=== PATIENT | male | born 1950 | race Caucasian/White ===

== ENCOUNTER 2017-04-03 22:55 | Day surgery (SDC) | payer OTHER ==
[~2017-04-03] VITALS: Ht 180.3 cm; Wt 89.3 kg
[2017-04-03 23:30] VITALS: BP 120/88; PULSE 94; TEMP 98.8; O2SAT 97
[2017-04-03] MEDS ORDERED: GLIP5TAB8 PO (23:57)
[2017-04-03] MEDS ORDERED: METF1000 PO (23:57)
[2017-04-03] MEDS ORDERED: SIMV20TA PO (23:58)
[2017-04-04 00:20] VITALS: BP 154/93; PULSE 95; RESP 18; O2SAT 97
[2017-04-04] MEDS ORDERED: ONDANSETRON HCL 4 MG/2 ML VIAL IV ONE (00:30)
[2017-04-04] MEDS ORDERED: SODIUM CHLOR 0.9% 1000 ML INJ 1,000 ML IV SCH ×2 (00:30→02:00)
[2017-04-04 01:03] LABS: AUTOMATED NEUTROPHIL # 7.4 TH/MM3 (1.8-7.7); BASOPHIL # 0.1 TH/MM3 (0-0.2); BASOPHIL % 0.9 % (0.0-2.0); CHLORIDE 104 MEQ/L (98-107); EOSINOPHIL # 0.2 TH/MM3 (0-0.4); EOSINOPHIL % 1.5 % (0.0-4.0); HEMATOCRIT 45.8 % (39.0-51.0); HEMO FLAGS DIFF FINAL; LYMPH % 18.4 % (9.0-44.0); LYMPHOCYTE # 1.9 TH/MM3 (1.0-4.8); MEAN CELL VOLUME 86.8 FL (80.0-100.0); MEAN CORPUSCULAR HEMOGLOBIN 29.4 PG (27.0-34.0); MEAN CORPUSCULAR HGB CONC 33.9 % (32.0-36.0); MONO % 7.9 % (0.0-8.0); NEUT % 71.3 % (16.0-70.0); PLATELET COUNT 276 TH/MM3 (150-450); POTASSIUM 3.9 MEQ/L (3.5-5.1); RED BLOOD COUNT 5.28 MIL/MM3 (4.50-5.90); RED CELL DISTRIBUTION WIDTH 12.6 % (11.6-17.2); SODIUM (NA) 141 MEQ/L (136-145); WHITE BLOOD COUNT 10.4 TH/MM3 (4.0-11.0)
[2017-04-04 01:06] LABS: ANION GAP 11 MEQ/L (5-15); BICARBONATE 25.9 MEQ/L (21.0-32.0); BLOOD UREA NITROGEN 22 MG/DL (7-18)
[2017-04-04 01:09] LABS: ALT (GPT) 30 U/L (12-78); AST (GOT) 27 U/L (15-37); GLOMERULAR FILTRATION RATE 83 ML/MIN (>89)
[2017-04-04 01:11] LABS: TOTAL BILIRUBIN ADULT 1.1 MG/DL (0.2-1.0)
[2017-04-04 01:12] LABS: ALKALINE PHOSPHATASE 92 U/L (45-117)
--- NOTE | 2017-04-04 01:12 | RADHPO ---
EXAM DATE/TIME: 04/04/2017 00:55 [place] COMPARISON: No previous studies available for comparison. INDICATIONS : Short of breath. MEDICAL HISTORY : None. SURGICAL HISTORY : None. ENCOUNTER: Initial ACUITY: 2 days PAIN SCORE: 6/10 LOCATION: Bilateral chest FINDINGS: A single view of the chest demonstrates the lungs to be symmetrically aerated without evidence of mas s, infiltrate or effusion. The cardiomediastinal contours are unremarkable. Osseous structures are intact. CONCLUSION: Normal examination. Ramon Elaine Jr., MD on April 04, 2017 at 1:11 Board Certified Radiologist. This report was verified electronically.
[2017-04-04 01:20] VITALS: BP 153/84; PULSE 89; RESP 18; O2SAT 99
--- NOTE | 2017-04-04 01:59 | PD ---
HPI Chief Complaint: GI Complaint Time Seen by Provider: 00:09 Travel History International Travel<30 days: No Contact w/Intl Traveler<30days: No Traveled to known affect area: No History of Present Illness HPI This a 66 old male presents emergency department complaining that he is having pain in his esophagus. He states this started yesterday. It a history of severe acid reflux in the past but hasn't really had trouble recently. He states he was eating when he got this pain and fullness in his chest. He states he tries to eat and swallow but we'll go more than midway down his chest. He is not been able to really eat or drink since yesterday evening. He still intermittently wretches. He states he's had very mild similar problems in the past but always resolved pretty quickly on its own. No trouble breathing. No change in his bowel movements. His urine is been a little bit darker. History Past Medical History Narrative Medical Diabetes GERD Tetanus Vaccination: < 5 Years Influenza Vaccination: Yes Social History Alcohol Use: No Tobacco Use: No Allergies-Medications (Allergen,Severity, Reaction): Coded Allergies: No Known Allergies (Unverified , 04/03/17) Reported Meds & Prescriptions Reported Meds & Active Scripts Active Reported Simvastatin 20 Mg Tab 20 Mg PO DAILY Glipizide 5 Mg Tab 5 Mg PO BIDAC Take 30 minutes before a meal Metformin (Metformin HCl) 1,000 Mg Tab 1,000 Mg PO BIDPC With meals Review of Systems Except as stated in HPI: all other systems reviewed are Neg Physical Exam Narrative GENERAL: 66 old man, intermittently retching into an emesis basin. SKIN: Focused skin assessment warm/dry. NECK: Trachea midline. No JVD. CARDIOVASCULAR: Regular rate and rhythm. No murmur appreciated. RESPIRATORY: No accessory muscle use. Clear to auscultation. Breath sounds equal bilaterally. GASTROINTESTINAL: Abdomen soft, non-tender, nondistended. Hepatic and splenic margins not palpable. MUSCULOSKELETAL: No obvious deformities. No clubbing. No cyanosis. No edema. NEUROLOGICAL: Awake and alert. No obvious cranial nerve deficits. Motor grossly within normal limits. Normal speech. PSYCHIATRIC: Appropriate mood and affect; insight and judgment normal. Data Data Last Documented VS Vital Signs Date Time Temp Pulse Resp B/P Pulse Ox O2 Delivery O2 Flow Rate FiO2 04/04/17 01:20 89 18 153/84 99 Room Air 04/03/17 23:30 98.8 Orders Complete Blood Count With Diff (04/04/17 00:21) Comprehensive Metabolic Panel (04/04/17 00:21) Chest, Single Ap (04/04/17 ) Iv Access Insert/Monitor (04/04/17 00:21) Sodium Chlor 0.9% 1000 Ml Inj (Ns 1000 M (04/04/17 00:30) Ondansetron Inj (Zofran Inj) (04/04/17 00:30) Consult Gastroenterology (04/04/17 ) Labs Laboratory Tests Test 04/04/17 00:40 White Blood Count 10.4 TH/MM3 Red Blood Count 5.28 MIL/MM3 Hemoglobin 15.5 GM/DL Hematocrit 45.8 % Mean Corpuscular Volume 86.8 FL Mean Corpuscular Hemoglobin 29.4 PG Mean Corpuscular Hemoglobin 33.9 % Concent Red Cell Distribution Width 12.6 % Platelet Count 276 TH/MM3 Mean Platelet Volume 8.0 FL Neutrophils (%) (Auto) 71.3 % Lymphocytes (%) (Auto) 18.4 % Monocytes (%) (Auto) 7.9 % Eosinophils (%) (Auto) 1.5 % Basophils (%) (Auto) 0.9 % Neutrophils # (Auto) 7.4 TH/MM3 Lymphocytes # (Auto) 1.9 TH/MM3 Monocytes # (Auto) 0.8 TH/MM3 Eosinophils # (Auto) 0.2 TH/MM3 Basophils # (Auto) 0.1 TH/MM3 CBC Comment DIFF FINAL Differential Comment Sodium Level 141 MEQ/L Potassium Level 3.9 MEQ/L Chloride Level 104 MEQ/L Carbon Dioxide Level 25.9 MEQ/L Anion Gap 11 MEQ/L Blood Urea Nitrogen 22 MG/DL Creatinine 0.92 MG/DL Estimat Glomerular Filtration 83 ML/MIN Rate Random Glucose 149 MG/DL Calcium Level 9.3 MG/DL Total Bilirubin 1.1 MG/DL Aspartate Amino Transf 27 U/L (AST/SGOT) Alanine Aminotransferase 30 U/L (ALT/SGPT) Alkaline Phosphatase 92 U/L Total Protein 8.2 GM/DL Albumin 4.3 GM/DL [facility] Medical Decision Making Medical Screen Exam Complete: Yes Emergency Medical Condition: Yes Interpretation(s) LABS: CBC is unremarkable. CMP is unremarkable, mildly elevated BUN to suggest dehydration. Chest x-ray is normal. Differential Diagnosis Esophageal obstruction, stricture, achalasia, dysmotility, other Narrative Course Medical decision making 66 old male with evidence of esophageal obstruction, ongoing since yesterday. Some intermittent retching and swelling is phlegm. He looks well despite this. I spoke with on the phone, recommends transfer to the main hospital for EGD in the morning. Spoke with Dr. Cali, in the ED, we'll transfer patient ER to ER. Diagnosis Primary Impression: Esophageal obstruction Navi Koenig MD April 04, 2017 01:59
[2017-04-04 02:31] VITALS: BP 155/97; PULSE 85; RESP 16; TEMP 98.7; O2SAT 99
[2017-04-04 05:55] VITALS: BP 123/58; PULSE 87; RESP 14; TEMP 98.6; O2SAT 99
[2017-04-04 07:48] VITALS: BP 142/75; PULSE 95; RESP 14; TEMP 99.2; O2SAT 98
[2017-04-04] MEDS ORDERED: PROPOFOL 200 MG/20 ML AMP IV ONE (07:58)
--- NOTE | 2017-04-04 08:30 | GIPROC ---
[facility] [address] [place], [id number] EGD WITH DILATION PROCEDURE REPORT EXAM DATE: 04/04/2017 PATIENT NAME: Uri Zazueta MR#: [id number] BIRTHDATE: 1950 ATTENDING: Hermelinda Terry MD ORDER #: [id number] DIETITIAN: Bruce Beasley Stienbarger, Terrie, and Matt Villalobos STATUS: outpatient INDICATIONS: The patient is a 66 yr old male here for an EGD with dilation due to dysphagia, foreign body esophagus PROCEDURE PERFORMED: EGD w/ biopsy EGD w/ dilation of esophagus via guidewire EGD w/ fb removal MEDICATIONS: Per Anesthesia and None. TOPICAL ANESTHETIC: none CONSENT: The patient understands the risks and benefits of the procedure and understands that these risks include, but are not limited to: sedation, allergic reaction, infection, perforation and/or bleeding. Alternative means of evaluation and treatment include, among others: physical exam, x-rays, and/or surgical intervention. The patient elects to proceed with this endoscopic procedure. medical equipment was checked for proper function. Hand hygiene and appropriate measures for infection prevention was taken. After the risks, benefits and alternatives of the procedure were thoroughly explained, Informed consent was verified, confirmed and timeout was successfully executed by the treatment team. The patient was anesthetized with topical anesthesia and the Pentax [id number] endoscope was introduced through the mouth and advanced to the second portion of the duodenum. The instrument was slowly withdrawn as the mucosa was fully examined. Multiple superficial ulcerations in duodenum second portion gastritis antrum-biopsy esophagitis distal esophagus/stricture s/p dilatation using Savary dilator 16 large piece of meat in distal esophagus s/p removal using snare and tripong. Dilation was performed at gastroesophageal junction. DILATOR: SIZE(S): RESISTANCE: HEME: APPEARANCE: Dilator: Savary over guidewire Size(s): 16 COMMENT: Retroflexed views revealed a hiatal hernia ADVERSE EVENTS: There were no complications. IMPRESSIONS: 1. Multiple superficial ulcerations in duodenum second portion gastritis antrum-biopsy esophagitis distal esophagus/stricture s/p dilatation using Savary dilator 16 large piece of meat in distal esophagus s/p removal using snare and tripong 2. Retroflexed views revealed a hiatal hernia RECOMMENDATIONS: 1. Await biopsy results. Biopsy results will not be ready for 7-10 days. If you don't hear from us in two weeks, call our office for biopsy results. 2. Anti-reflux regimen 3. Start PPI 4. Dilatations PRN 5. Avoid NSAIDS 6. Pantoprazole 40 mg po daily fu office egd/dil in 6-8 weeks chew food well REPEAT EXAM: EGD pending biopsy results Hermelinda Terry MD eSigned: Hermelinda Terry MD 04/04/2017 8:30 AM cc: PATIENT NAME: Uri Zazueta MR#: [id number]
[2017-04-04] MEDS ORDERED: DO NOT ADM ANY ANTICOAGULANT DRUGS PRN (08:32)
[2017-04-04] MEDS ORDERED: PANT40TA3 PO (08:35)
--- NOTE | 2017-04-04 08:59 | PD.CONS ---
HPI History of Present Illness This is a 66 year old male who came to the ER for dysphagia and odynophagia. He reports that he has had GERD in the past and at one point was on medication for this, but has not had issues with this in quite some time. He was doing okay up until yesterday, when he noticed that it was taking longer to swallow his food. He states that the food was going down, but taking "longer than usual " and that when it would hit his mid esophageal area, he would have a aching/ pressure type discomfort when he tried to swallow. He had this with both liquids and solids. He denies any nausea, vomiting, abdominal pain. He has never had this in the past and has never had an EGD. He takes a daily ASA, but no Aleve or Ibuprofen. He denies any hx of strictures. (Catarina Cristina) PFSH Past Medical History DM GERD Past Surgical History Pilonidal cyst excision (Catarina Cristina) Coded Allergies: No Known Allergies (Unverified , 04/03/17) Medications Allergies Coded Allergies Type Severity Reaction Last Updated Verified No Known Allergies 04/03/17 No Active Scripts Medications Dose Route/Sig Days Date Category Dose Instructions Simvastatin 20 Mg Tab 20 Mg PO DAILY 04/03/17 Reported Glipizide 5 Mg Tab 5 Mg PO BIDAC 04/03/17 Reported Take 30 minutes before a meal Metformin (Metformin HCl) 1,000 Mg Tab 1,000 Mg PO BIDPC 04/03/17 Reported With meals Family History Noncontributory Social History No tobacco, etoh, illicit drug use. (Catarina Cristina) Review of Systems Constitutional: DENIES: Fatigue, Weight loss, Change in appetite Respiratory: DENIES: Cough Cardiovascular: COMPLAINS OF: Chest pain Gastrointestinal: COMPLAINS OF: Difficulty Swallowing, Odynophagia, Heartburn, DENIES: Abdominal pain, Black stools, Nausea, Vomiting Integumentary: DENIES: Rash Hematologic/lymphatic: DENIES: Bruising Neurologic: DENIES: Headache Psychiatric: DENIES: Confusion (Catarina Cristina) GI Exam Vitals I&O Vital Signs Date Time Temp Pulse Resp B/P Pulse Ox O2 Delivery O2 Flow Rate FiO2 04/04/17 07:48 99.2 95 14 142/75 98 Room Air 04/04/17 05:55 98.6 87 14 123/58 99 Room Air 04/04/17 02:31 98.7 85 16 155/97 99 Room Air 04/04/17 01:20 89 18 153/84 99 Room Air 04/04/17 00:20 95 18 154/93 97 Room Air 04/03/17 23:30 98.8 94 120/88 97 I/O 04/03/17 04/03/17 04/03/17 04/04/17 04/04/17 04/04/17 07:00 15:00 23:00 07:00 15:00 23:00 Intake Total 1000 ml Balance 1000 ml Intake IV Total 1000 ml Imaging Last Impressions Chest X-Ray 04/04/17 0000 Signed Impressions: Service Date/Time: Tuesday, April 04, 2017 00:55 - CONCLUSION: Normal examination. Ramon Elaine Jr., MD Laboratory Test 04/04/17 00:40 White Blood Count 10.4 TH/MM3 Red Blood Count 5.28 MIL/MM3 Hemoglobin 15.5 GM/DL Hematocrit 45.8 % Mean Corpuscular Volume 86.8 FL Mean Corpuscular Hemoglobin 29.4 PG Mean Corpuscular Hemoglobin 33.9 % Concent Red Cell Distribution Width 12.6 % Platelet Count 276 TH/MM3 Mean Platelet Volume 8.0 FL Neutrophils (%) (Auto) 71.3 % Lymphocytes (%) (Auto) 18.4 % Monocytes (%) (Auto) 7.9 % Eosinophils (%) (Auto) 1.5 % Basophils (%) (Auto) 0.9 % Neutrophils # (Auto) 7.4 TH/MM3 Lymphocytes # (Auto) 1.9 TH/MM3 Monocytes # (Auto) 0.8 TH/MM3 Eosinophils # (Auto) 0.2 TH/MM3 Basophils # (Auto) 0.1 TH/MM3 CBC Comment DIFF FINAL Differential Comment Sodium Level 141 MEQ/L Potassium Level 3.9 MEQ/L Chloride Level 104 MEQ/L Carbon Dioxide Level 25.9 MEQ/L Anion Gap 11 MEQ/L Blood Urea Nitrogen 22 MG/DL Creatinine 0.92 MG/DL Estimat Glomerular Filtration 83 ML/MIN Rate Random Glucose 149 MG/DL Calcium Level 9.3 MG/DL Total Bilirubin 1.1 MG/DL Aspartate Amino Transf 27 U/L (AST/SGOT) Alanine Aminotransferase 30 U/L (ALT/SGPT) Alkaline Phosphatase 92 U/L Total Protein 8.2 GM/DL Albumin 4.3 GM/DL Physical Examination HEENT: Normocephalic; atraumatic; no jaundice. CHEST: CTA CARDIAC: RRR ABDOMEN: Soft, nondistended, nontender; no hepatosplenomegaly; bowel sounds are present in all four quadrants. EXTREMITIES: No clubbing, cyanosis, or edema. SKIN: Normal; no rash; no jaundice. PEDIATRIC PHYSIATRIST: No focal deficits; alert and oriented times three. (Catarina Cristina) Assessment and Plan Plan ASSESSMENT: - Dysphagia, Odynophagia. Sudden onset yesterday without one precipitating even. States that he noticed that food seem to get caught in the mid/lower esophageal area, food and liquids would go down, but it would take longer than usual and he would have a discomfort with this. No N/V. No hx of strictures. Plan for EGD today. PPI - GERD. PPI - DM. Per primary PLAN: - Plan for egd with foreign body removal - Obtain consents - NPO - PPI - Pt seen and examined by Dr. Terry and myself and this note is written on her behalf (Catarina Cristina) Physician Comments seen, examined agree with above (Hermelinda Terry MD) Catarina Cristina April 04, 2017 08:59 Hermelinda Terry MD April 05, 2017 06:27
[2017-04-04 09:45] VITALS: BP 142/81; PULSE 97; RESP 16; TEMP 98.2; O2SAT 96
[2017-04-04] MEDS ORDERED: ONDANSETRON HCL 4 MG/2 ML VIAL IV PUSH ONE (12:00)
[2017-04-04] MEDS ORDERED: ePHEDrine/NS 25 MG/5 ML SYR IV ONE (12:00)
--- NOTE | 2017-04-19 07:05 | PD ---
Data Data Orders Complete Blood Count With Diff (04/04/17 00:21) Comprehensive Metabolic Panel (04/04/17 00:21) Chest, Single Ap (04/04/17 ) Iv Access Insert/Monitor (04/04/17 00:21) Sodium Chlor 0.9% 1000 Ml Inj (Ns 1000 M (04/04/17 00:30) Ondansetron Inj (Zofran Inj) (04/04/17 00:30) Consult Gastroenterology (04/04/17 ) NPO (04/04/17 01:57) Sodium Chlor 0.9% 1000 Ml Inj (Ns 1000 M (04/04/17 02:00) (Hub Use Only)Inp Phy Cons/Ref (04/04/17 ) Admit Order (Ed Use Only) (04/04/17 06:58) MDM Supervised Visit with MARCUS: No Narrative Course Pt. was received from [place]. He had no signs of airway compromise and was stable in the ED. He was transported to same day care for endoscopy. Diagnosis Primary Impression: Esophageal obstruction Patient Instructions: Pantoprazole (By mouth), Soft Diet (DC), Esophageal Foreign Body (GEN), Esophageal Dilation (DC), General Anesthesia (DC) Scripts Pantoprazole 40 Mg Tab40 Mg PO DAILY #30 TAB-CAP Ref 0 NS Prov:Hermelinda Terry MD 04/04/17 Madison Cali MD April 19, 2017 07:05
== END 2017-04-04 10:43 | disposition home or self-care (01) ==
LOC: PHED 22:55 → HSDC 04-04 07:01 → NEDA 04-04 07:02 → HSDC 04-04 07:02 → NEDA 04-04 09:31 → NEPC 04-04 09:31 → HSDC 04-04 10:43
PROVIDERS: ATTEND Internal Medicine Gastroenterology
DX: K22.2 Esophageal obstruction (principal); K21.9 Gastro-esophageal reflux disease without esophagitis; E11.9 Type 2 diabetes mellitus without complications; Z79.84 Long term (current) use of oral hypoglycemic drugs; R13.10 Dysphagia, unspecified; K29.70 Gastritis, unspecified, without bleeding; K26.1 Acute duodenal ulcer with perforation; T18.128A Food in esophagus causing other injury, initial encounter
CPT/HCPCS: 00740; 43239; 43247; 43248; 71010; 80053; 85025; 88305; 88312; 99285; C1769; J2405; J3010; J7030; 96361; 96372; 96374; 99281

== ENCOUNTER 2018-05-09 15:29 | Observation (INO) | payer OTHER ==
[~2018-05-09] VITALS: Ht 180.3 cm; Wt 92.5 kg
[~2018-05-09 15:29] MED LIST: GLIP5TAB8 PO; METF1000 PO; PANT40TA3 PO; SIMV20TA PO
[2018-05-09 15:51] VITALS: BP 144/75; PULSE 96; RESP 17; TEMP 99; O2SAT 98
[2018-05-09 17:43] LABS: BASOPHIL # 0.1 TH/MM3 (0-0.2); BASOPHIL % 1.9 % (0.0-2.0); EOSINOPHIL # 0.7 TH/MM3 (0-0.4); EOSINOPHIL % 8.6 % (0.0-4.0); HEMATOCRIT 42.5 % (39.0-51.0); HEMOGLOBIN 14.2 GM/DL (13.0-17.0); LYMPH % 16.6 % (9.0-44.0); LYMPHOCYTE # 1.3 TH/MM3 (1.0-4.8); MEAN CORPUSCULAR HEMOGLOBIN 29.5 PG (27.0-34.0); MEAN CORPUSCULAR HGB CONC 33.5 % (32.0-36.0); MEAN PLATELET VOLUME 8.1 FL (7.0-11.0); MONO % 7.5 % (0.0-8.0); MONOCYTE # 0.6 TH/MM3 (0-0.9); NEUT % 65.4 % (16.0-70.0); PLATELET COUNT 263 TH/MM3 (150-450); RED BLOOD COUNT 4.83 MIL/MM3 (4.50-5.90); RED CELL DISTRIBUTION WIDTH 13.7 % (11.6-17.2); WHITE BLOOD COUNT 7.7 TH/MM3 (4.0-11.0)
[2018-05-09 17:47] VITALS: BP 159/87; PULSE 92; RESP 17; O2SAT 98
[2018-05-09 17:59] LABS: ALBUMIN 3.9 GM/DL (3.4-5.0); ALT (GPT) 34 U/L (12-78); AST (GOT) 28 U/L (15-37); BICARBONATE 24.9 MEQ/L (21.0-32.0); BLOOD UREA NITROGEN 14 MG/DL (7-18); CALCIUM 8.8 MG/DL (8.5-10.1); CHLORIDE 102 MEQ/L (98-107); CREATININE 1.01 MG/DL (0.60-1.30); GLOMERULAR FILTRATION RATE 74 ML/MIN (>89); GLUCOSE,RANDOM 261 MG/DL (74-106); SODIUM (NA) 139 MEQ/L (136-145)
[2018-05-09] MEDS ORDERED: PIPERACIL-TAZO 3.375 GM PREMIX 50 ML IV ONE (18:00)
[2018-05-09] MEDS: SODIUM CHLOR 0.9% 1000 ML INJ 1,000 ML IV SCH (18:00)
[2018-05-09] MEDS ORDERED: VANCOMYCIN INJ 1,000 MG in SODIUM CHLOR 0.9% 250 ML INJ 250 ML IV ONE (18:00)
[2018-05-09 18:01] LABS: ALKALINE PHOSPHATASE 98 U/L (45-117); TOTAL BILIRUBIN ADULT 0.8 MG/DL (0.2-1.0); TOTAL PROTEIN 7.7 GM/DL (6.4-8.2)
--- NOTE | 2018-05-09 18:01 | PD ---
HPI Chief Complaint: Skin Problem Time Seen by Provider: 17:36 Travel History International Travel<30 days: No Contact w/Intl Traveler<30days: No Traveled to known affect area: No History of Present Illness HPI 67-year-old male complains of redness swelling left lower leg. Patient states that he had an abrasion to left lower leg about 6 weeks ago. Patient states that he is not having increasing redness swelling left lower leg since then. [facility] and advised to go to ED for evaluation. Patient denies any fever chills. Patient complained of itching rash on both hands for the past week also. Patient has history of diabetes type 2, hyperlipidemia. Patient is a smoker. Patient denies any alcohol or illicit drug abuse. Patient states that he was wearing new gloves recently and started having itching rash burning rash on both hands the past week. Patient denies any injury to the hands. PFSH Past Medical History High Cholesterol: Yes Diabetes: Yes Patient Takes Glucophage: Yes Diminished Hearing: No GERD: Yes Tetanus Vaccination: Unknown Influenza Vaccination: No Social History Alcohol Use: No Tobacco Use: No Substance Use: No Allergies-Medications (Allergen,Severity, Reaction): Coded Allergies: No Known Allergies (Unverified , 04/03/17) Reported Meds & Prescriptions Reported Meds & Active Scripts Active Pantoprazole (Pantoprazole Sodium) 40 Mg Tab 40 Mg PO DAILY Reported Simvastatin 20 Mg Tab 20 Mg PO DAILY Glipizide 5 Mg Tab 5 Mg PO BIDAC Take 30 minutes before a meal Metformin (Metformin HCl) 1,000 Mg Tab 1,000 Mg PO BIDPC With meals Review of Systems General / Constitutional: No: Fever Eyes: No: Visual changes HENT: No: Headaches Cardiovascular: No: Chest Pain or Discomfort Respiratory: No: Shortness of Breath Gastrointestinal: No: Abdominal Pain Genitourinary: No: Dysuria Musculoskeletal: Positive: Edema, Pain Skin: No Rash Neurologic: No: Weakness Psychiatric: No: Depression Endocrine: No: Polydipsia Hematologic/Lymphatic: No: Easy Bruising Physical Exam Narrative GENERAL: Well-nourished, well-developed patient. SKIN: Focused skin assessment warm/dry. HEAD: Normocephalic. EYES: No scleral icterus. No injection or drainage. NECK: Supple, trachea midline. No JVD or lymphadenopathy. CARDIOVASCULAR: Regular rate and rhythm without murmurs, gallops, or rubs. RESPIRATORY: Breath sounds equal bilaterally. No accessory muscle use. GASTROINTESTINAL: Abdomen soft, non-tender, nondistended. MUSCULOSKELETAL: No cyanosis, or edema. BACK: Nontender without obvious deformity. No CVA tenderness. Patient had redness edema tenderness left lower leg left ankle and left foot. Blisters noted on the left foot. Blister noted on the medial lateral aspect of the left foot also. Patient has diffuse clear vesicular rash on bilateral hands and fingers. Data Data Last Documented VS Vital Signs Date Time Temp Pulse Resp B/P (MAP) Pulse Ox O2 Delivery O2 Flow Rate FiO2 05/09/18 17:47 92 17 159/87 (111) 98 Room Air 05/09/18 15:51 99.0 Orders Orders Complete Blood Count With Diff (05/09/18 15:55) Comprehensive Metabolic Panel (05/09/18 15:55) Hepatic Functional Panel (05/09/18 17:46) Blood Culture (05/09/18 17:46) Sodium Chlor 0.9% 1000 Ml Inj (Ns 1000 M (05/09/18 18:00) Vancomycin Inj (Vancomycin Inj) (05/09/18 18:00) Piperacil-Tazo 3.375 Gm Premix (Zosyn 3. (05/09/18 18:00) Labs Laboratory Tests Test 05/09/18 16:36 White Blood Count 7.7 TH/MM3 Red Blood Count 4.83 MIL/MM3 Hemoglobin 14.2 GM/DL Hematocrit 42.5 % Mean Corpuscular Volume 88.0 FL Mean Corpuscular Hemoglobin 29.5 PG Mean Corpuscular Hemoglobin Concent 33.5 % Red Cell Distribution Width 13.7 % Platelet Count 263 TH/MM3 Mean Platelet Volume 8.1 FL Neutrophils (%) (Auto) 65.4 % Lymphocytes (%) (Auto) 16.6 % Monocytes (%) (Auto) 7.5 % Eosinophils (%) (Auto) 8.6 % Basophils (%) (Auto) 1.9 % Neutrophils # (Auto) 5.0 TH/MM3 Lymphocytes # (Auto) 1.3 TH/MM3 Monocytes # (Auto) 0.6 TH/MM3 Eosinophils # (Auto) 0.7 TH/MM3 Basophils # (Auto) 0.1 TH/MM3 CBC Comment DIFF FINAL Differential Comment Blood Urea Nitrogen 14 MG/DL Creatinine 1.01 MG/DL Random Glucose 261 MG/DL Total Protein 7.7 GM/DL Albumin 3.9 GM/DL Calcium Level 8.8 MG/DL Alkaline Phosphatase 98 U/L Aspartate Amino Transf (AST/SGOT) 28 U/L Alanine Aminotransferase (ALT/SGPT) 34 U/L Total Bilirubin 0.8 MG/DL Sodium Level 139 MEQ/L Potassium Level 3.7 MEQ/L Chloride Level 102 MEQ/L Carbon Dioxide Level 24.9 MEQ/L Anion Gap 12 MEQ/L Estimat Glomerular Filtration Rate 74 ML/MIN [facility] Medical Decision Making Medical Screen Exam Complete: Yes Emergency Medical Condition: Yes Differential Diagnosis Differential diagnosis including cellulitis, abscess, DVT. Narrative Course 67-year-old male with redness swelling blister left lower leg, left foot and left ankle. Patient has had rash on bilateral hands. Terrance Tejeda MD May 09, 2018 18:01
[2018-05-09 18:29] LABS: DIRECT BILIRUBIN ADULT 0.2 MG/DL (0.0-0.2)
[2018-05-09 18:31] LABS: INDIRECT BILIRUBIN 0.5 MG/DL (0.0-0.8); TOTAL BILIRUBIN ADULT 0.7 MG/DL (0.2-1.0); TOTAL PROTEIN 7.7 GM/DL (6.4-8.2)
[2018-05-09 19:19] VITALS: BP 122/73; PULSE 74; PULSE 90; RESP 16; O2SAT 97
--- NOTE | 2018-05-09 19:32 | PD ---
Data Data Last Documented VS Vital Signs Date Time Temp Pulse Resp B/P (MAP) Pulse Ox O2 Delivery O2 Flow Rate FiO2 05/09/18 19:19 90 16 122/73 (89) 97 Room Air 05/09/18 15:51 99.0 Orders Orders Complete Blood Count With Diff (05/09/18 15:55) Comprehensive Metabolic Panel (05/09/18 15:55) Hepatic Functional Panel (05/09/18 17:46) Blood Culture (05/09/18 17:46) Sodium Chlor 0.9% 1000 Ml Inj (Ns 1000 M (05/09/18 18:00) Vancomycin Inj (Vancomycin Inj) (05/09/18 18:00) Piperacil-Tazo 3.375 Gm Premix (Zosyn 3. (05/09/18 18:00) Us Leg Venous Doppler (05/09/18 18:18) Admit Order (Ed Use Only) (05/09/18 20:30) Bedside Glucose BREANN.CSUGAR (05/09/18 20:53) Special Diet Instructions (05/09/18 20:53) Blood Glucose Goal (Criteria) (05/09/18 20:53) Hypoglycemia 70 Mg/Dl Or < (05/09/18 20:53) Notify Dr: Other (05/09/18 20:53) Dextrose 50% In Bhumi (Vial) Inj (D50w (Vi (05/09/18 21:00) Glucagon Inj (Glucagon Inj) (05/09/18 21:00) Insulin Aspart Supplemtl Scale (Novolog (05/09/18 21:00) Hydrocortisone 1% Cream (Hydrocortisone (05/09/18 21:00) Vancomycin Consult Pharmacy (Vancomycin (05/09/18 21:00) Piperacil-Tazo 3.375 Gm Premix (Zosyn 3. (05/10/18 00:00) Place In Observation (05/09/18 ) Vital Signs (Adult) Q4H (05/09/18 20:55) Activity Oob With Assistance (05/09/18 20:55) Diet Heart Healthy (05/10/18 Breakfast) Sodium Chloride 0.9% Flush (Ns Flush) (05/09/18 21:00) Sodium Chloride 0.9% Flush (Ns Flush) (05/09/18 21:00) Acetaminophen (Tylenol) (05/09/18 21:00) Basic Metabolic Panel (Bmp) (05/10/18 06:00) Complete Blood Count With Diff (05/10/18 06:00) Pt Request For Service (05/09/18 20:55) Heparin Inj (Heparin Inj) (05/09/18 21:00) Naloxone Inj (Narcan Inj) (05/09/18 21:00) Magnesium Hydroxide Liq (Milk Of Magnesi (05/09/18 21:00) Sennosides (Senokot) (05/09/18 21:00) Bisacodyl Supp (Dulcolax Supp) (05/09/18 21:00) Labs Laboratory Tests Test 05/09/18 16:36 White Blood Count 7.7 TH/MM3 Red Blood Count 4.83 MIL/MM3 Hemoglobin 14.2 GM/DL Hematocrit 42.5 % Mean Corpuscular Volume 88.0 FL Mean Corpuscular Hemoglobin 29.5 PG Mean Corpuscular Hemoglobin Concent 33.5 % Red Cell Distribution Width 13.7 % Platelet Count 263 TH/MM3 Mean Platelet Volume 8.1 FL Neutrophils (%) (Auto) 65.4 % Lymphocytes (%) (Auto) 16.6 % Monocytes (%) (Auto) 7.5 % Eosinophils (%) (Auto) 8.6 % Basophils (%) (Auto) 1.9 % Neutrophils # (Auto) 5.0 TH/MM3 Lymphocytes # (Auto) 1.3 TH/MM3 Monocytes # (Auto) 0.6 TH/MM3 Eosinophils # (Auto) 0.7 TH/MM3 Basophils # (Auto) 0.1 TH/MM3 CBC Comment DIFF FINAL Differential Comment Blood Urea Nitrogen 14 MG/DL Creatinine 1.01 MG/DL Random Glucose 261 MG/DL Total Protein 7.7 GM/DL Albumin 3.9 GM/DL Calcium Level 8.8 MG/DL Alkaline Phosphatase 98 U/L Aspartate Amino Transf (AST/SGOT) 28 U/L Alanine Aminotransferase (ALT/SGPT) 34 U/L Total Bilirubin 0.8 MG/DL Sodium Level 139 MEQ/L Potassium Level 3.7 MEQ/L Chloride Level 102 MEQ/L Carbon Dioxide Level 24.9 MEQ/L Anion Gap 12 MEQ/L Estimat Glomerular Filtration Rate 74 ML/MIN Direct Bilirubin 0.2 MG/DL Indirect Bilirubin 0.5 MG/DL [facility] Medical Record Reviewed: Yes Supervised Visit with MARCUS: No Narrative Course During the course of the patient's emergency department visit, the patient's history, examination, and differential diagnosis were reviewed with the patient. The patient was placed on a court recording monitor with oximetry and frequent blood pressure monitoring. The patient had IV access obtained and blood work sent for analysis. The patient's case was checked out to me by Dr. Tejeda. Please see his please history and physical. The patient's case was checked out to me at the conclusion of his shift. The patient presented with a history of requiring an abrasion to the left leg around March 28. The patient then developed what appeared to be redness swelling erythema to the leg. The patient was sent by the [facility] for evaluation in the emergency department for this condition. Ultrasound has been ordered to rule out underlying DVT. The patient was initially provided normal saline 1 L IV fluid bolus, Zosyn and vancomycin for broad-spectrum antibiotic coverage for cellulitis. The patient's laboratory studies were reviewed and remarkable for a white count of 7.7, hemoglobin 14.2, platelets 263 with 8.6 eosinophils, CMP is remarkable for glucose of 261. Radiology studies were reviewed and remarkable for Last Impressions Lower Extremity Ultrasound 05/09/18 0318 Signed Impressions: CONCLUSION: Negative for deep venous thrombosis. Bharathi Eng MD FACR The patient's results were discussed with the patient, including the plan of care. I explained that further testing and/ or monitoring is indicated based on the patient's history, examination, and/ or laboratory findings. Therefore, I recommended admission for additional evaluation. The patient expressed understanding and was agreeable with this plan. The patient was admitted to the hospital in stable condition and [facility] Physician Communication Physician Communication The patient's case including history, pertinent physical examination findings, and laboratory studies were discussed with Dr. Amaya. It was agreed that the patient would be admitted to the [facility] ([place], [place]) service. Diagnosis Primary Impression: Cellulitis of left leg Admitting Information Admitting Physician Requests: Admit Ivonne Hemphill MD May 09, 2018 19:32
--- NOTE | 2018-05-09 19:42 | RADRPT ---
EXAM DATE: 05/09/2018 7:39 PM EDT AGE/SEX: 67 years / Male INDICATIONS: Left leg swelling. CLINICAL DATA: This is the patient's initial encounter. Patient reports that signs and symptoms have been present for 2 weeks and indicates a pain score of 3/10. MEDICAL/SURGICAL HISTORY: Hypercholesterolemia. Gastroesophageal reflux disease. Diabetes. . Cyst removal from spine. COMPARISON: No prior exams available for comparison. TECHNIQUE: Venous ultrasound of both lower extremities was performed from the inguinal ligament to t he proximal calf. Real-time, color Doppler and spectral tracing, compression and augmentation techni ques were used. FINDINGS: There is normal compressibility of the deep venous system from the inguinal region to the proximal ca lf. No echogenic clot is seen in the lumen of the common femoral, femoral, popliteal, and posterior tibial veins. There is a normal response of the venous system to proximal and distal augmentation an d respiration. CONCLUSION: Negative for deep venous thrombosis. Bharathi Eng MD FACR Electronically signed by: Bharathi Eng MD 05/09/2018 7:41 PM EDT
[2018-05-09] MEDS ORDERED: GLUCAGON 1 MG/ML VIAL OTHER PRN (21:00)
[2018-05-09] MEDS ORDERED: NALOXONE HCL 0.4 MG/ML AMP IV PUSH PRN (21:00)
[2018-05-09] MEDS ORDERED: MAGNESIUM HYDROXIDE SUSP 30 ML CUP PO PRN (21:00)
[2018-05-09] MEDS ORDERED: SODIUM CHLORIDE 0.9% FLUSH 10 ML FLUSH IV FLUSH PRN (21:00)
[2018-05-09] MEDS ORDERED: SENNOSIDES 8.6 MG TAB PO PRN (21:00)
[2018-05-09] MEDS ORDERED: ACETAMINOPHEN 325 MG TAB PO PRN (21:00)
[2018-05-09] MEDS ORDERED: DEXTROSE 50% IN WATER 50 ML VIAL(D50) IV PUSH PRN (21:00)
[2018-05-09] MEDS ORDERED: BISACODYL 10 MG SUPP RECTAL PRN (21:00)
[2018-05-09] MEDS ORDERED: Vancomycin Consult Pharmacy 1 EA OTHER SCH (21:00)
[2018-05-09 21:59] VITALS: BP 156/74; PULSE 77; RESP 17; TEMP 98.3; O2SAT 100
--- NOTE | 2018-05-09 22:40 | HHI.HP ---
HPI Service [facility] Primary Care Physician [facility] Admission Diagnosis Left leg Cellulitis with vesicle formation Diagnoses: Travel History International Travel<30 Days: No Contact w/Intl Traveler <30 Da: No Traveled to Known Affected Are: No History of Present Illness 67-year-old male with a past medical history significant for type 2 diabetes mellitus, hyperlipidemia and GERD presents to the emergency department for the evaluation of left lower extremity redness/swelling. The patient reports that for the past 2 weeks his left lower extremity has become increasingly erythematous and swollen. He reports that on 03/28 he fell and scraped his brizuela. He states he kept the area clean with soap and water and Band-Aids and felt that it was healing appropriately until 2 weeks ago. He denies any fever/ chills. States he does have ankle pain with ambulation. He began to notice blistering on the top of his foot and his lower brizuela approximately 2-3 days ago. No chest pain or shortness of breath. No abdominal pain. No nausea/ vomiting/diarrhea. No lateralizing signs/symptoms. Review of Systems Except as stated in HPI: all other systems reviewed are Neg Past Family Social History Past Medical History Diabetes mellitus type 2 Hyperlipidemia GERD Past Surgical History None Reported Medications Reported Meds & Active Scripts Active Pantoprazole (Pantoprazole Sodium) 40 Mg Tab 40 Mg PO DAILY Reported Simvastatin 20 Mg Tab 20 Mg PO DAILY Glipizide 5 Mg Tab 5 Mg PO BIDAC Take 30 minutes before a meal Metformin (Metformin HCl) 1,000 Mg Tab 1,000 Mg PO BIDPC With meals Allergies: Coded Allergies: No Known Allergies (Unverified , 04/03/17) Family History Mother with diabetes mellitus Social History Negative for alcohol, tobacco and illicit drugs Physical Exam Vital Signs Vital Signs Date Time Temp Pulse Resp B/P (MAP) Pulse Ox O2 Delivery O2 Flow Rate FiO2 05/09/18 21:59 98.3 77 17 156/74 (101) 100 05/09/18 21:15 05/09/18 19:19 90 16 122/73 (89) 97 Room Air 6/12/18 17:47 92 17 159/87 (111) 98 Room Air 05/09/18 15:51 99.0 96 17 144/75 (98) 98 Physical Exam GENERAL: male sitting up in bed SKIN: Left lower extremity erythematous and swollen without fluctuance or induration. Several bullae present on the top of the foot and lower ankle. Areas of patchy, red flakiness along the bilateral hands consistent with eczema. HEAD: Atraumatic. Normocephalic. No temporal or scalp tenderness. EYES: Pupils equal round and reactive. Extraocular motions intact. No scleral icterus. No injection or drainage. ENT: Nose without bleeding, purulent drainage or septal hematoma. Throat without erythema, tonsillar hypertrophy or exudate. Uvula midline. Airway patent. NECK: Trachea midline. No JVD or lymphadenopathy. Supple, nontender, no meningeal signs. CARDIOVASCULAR: Regular rate and rhythm without murmurs, gallops, or rubs. RESPIRATORY: Clear to auscultation. Breath sounds equal bilaterally. No wheezes , rales, or rhonchi. GASTROINTESTINAL: Abdomen soft, non-tender, nondistended. No hepato-splenomegaly , or palpable masses. No guarding. MUSCULOSKELETAL: Extremities without clubbing, cyanosis, or edema. No joint tenderness, effusion, or edema noted. No calf tenderness. NEUROLOGICAL: Awake and alert. Cranial nerves II through XII intact. Motor and sensory grossly within normal limits. Normal speech. Laboratory Laboratory Tests Test 05/09/18 16:36 White Blood Count 7.7 Red Blood Count 4.83 Hemoglobin 14.2 Hematocrit 42.5 Mean Corpuscular Volume 88.0 Mean Corpuscular Hemoglobin 29.5 Mean Corpuscular Hemoglobin Concent 33.5 Red Cell Distribution Width 13.7 Platelet Count 263 Mean Platelet Volume 8.1 Neutrophils (%) (Auto) 65.4 Lymphocytes (%) (Auto) 16.6 Monocytes (%) (Auto) 7.5 Eosinophils (%) (Auto) 8.6 Basophils (%) (Auto) 1.9 Neutrophils # (Auto) 5.0 Lymphocytes # (Auto) 1.3 Monocytes # (Auto) 0.6 Eosinophils # (Auto) 0.7 Basophils # (Auto) 0.1 CBC Comment DIFF FINAL Differential Comment Blood Urea Nitrogen 14 Creatinine 1.01 Random Glucose 261 Total Protein 7.7 Albumin 3.9 Calcium Level 8.8 Alkaline Phosphatase 98 Aspartate Amino Transf (AST/SGOT) 28 Alanine Aminotransferase (ALT/SGPT) 34 Total Bilirubin 0.8 Sodium Level 139 Potassium Level 3.7 Chloride Level 102 Carbon Dioxide Level 24.9 Anion Gap 12 Estimat Glomerular Filtration Rate 74 Direct Bilirubin 0.2 Indirect Bilirubin 0.5 Date/Time Source Procedure Growth Status 05/09/18 17:50 Blood Peripheral Aerobic Blood Culture Pending Received 05/09/18 17:50 Blood Peripheral Anaerobic Blood Culture Pending Received Result Diagram: 05/09/18 1636 05/09/18 1636 Caprini VTE Risk Assessment Caprini VTE Risk Assessment: Mod/High Risk (score >= 2) Caprini Risk Assessment Model Point Value = 1 Point Value = 2 Point Value = 3 Point Value = 5 Age 41-60 Minor surgery BMI > 25 kg/m2 Swollen legs Varicose veins or History of unexplained or recurrent spontaneous Oral contraceptives or hormone replacement Sepsis (< 1 month) Serious lung disease, including pneumonia (< 1 month) Abnormal pulmonary function Acute myocardial infarction Congestive heart failure (< 1 month) History of inflammatory bowel disease Medical patient at bed rest Age 61-74 Arthroscopic surgery Major open surgery (> 45 min) Laparoscopic surgery (> 45 min) Malignancy Confined to bed (> 72 hours) Immobilizing plaster cast Central venous access Age >= 75 History of VTE Family history of VTE Factor V Leiden Prothrombin [id number] Lupus anticoagulant Anticardiolipin antibodies Elevated serum homocysteine Heparin-induced thrombocytopenia Other congenital or acquired thrombophilia Stroke (< 1 month) Elective arthroplasty Hip, pelvis, or leg fracture Acute spinal cord injury (< 1 month) Prophylaxis Regimen Total Risk Factor Score Risk Level Prophylaxis Regimen 0-1 Low Early ambulation 2 Moderate Order ONE of the following: *Sequential Compression Device (SCD) *Heparin 5000 units SQ BID 3-4 Higher Order ONE of the following medications: *Heparin 5000 units SQ TID *Enoxaparin/Lovenox 40 mg SQ daily (WT < 150 kg, CrCl > 30 mL/min) *Enoxaparin/Lovenox 30 mg SQ daily (WT < 150 kg, CrCl > 10-29 mL/min) *Enoxaparin/Lovenox 30 mg SQ BID (WT < 150 kg, CrCl > 30 mL/min) AND/OR *Sequential Compression Device (SCD) 5 or more Highest Order ONE of the following medications: *Heparin 5000 units SQ TID (Preferred with Epidurals) *Enoxaparin/Lovenox 40 mg SQ daily (WT < 150 kg, CrCl > 30 mL/min) *Enoxaparin/Lovenox 30 mg SQ daily (WT < 150 kg, CrCl > 10-29 mL/min) *Enoxaparin/Lovenox 30 mg SQ BID (WT < 150 kg, CrCl > 30 mL/min) AND *Sequential Compression Device (SCD) Assessment and Plan Assessment and Plan Assessment/plan: 1. Left lower extremity cellulitis Lower extremity ultrasound negative for DVT Blood cultures pending Vancomycin/Zosyn 2. Diabetes mellitus Holding home oral anti-hyperglycemics Sliding-scale insulin Monitor blood glucose 3. Hyperlipidemia/GERD Continue home medications 4. Eczema Hydrocortisone cream FEN Heart healthy diet Electrolytes: Monitor and replete as needed Heparin NS at 100 cc/hour Shanae Amaya MD May 09, 2018 22:40
[2018-05-09] MEDS: HYDROCORTISONE 1% CREAM 30 GM TOPICAL SCH (23:22)
[2018-05-09] MEDS: INSULIN ASPART SUPPLEMENTAL SCALE SQ SCH (23:23)
[2018-05-09] MEDS: SODIUM CHLORIDE 0.9% FLUSH 10 ML FLUSH IV FLUSH SCH (23:23)
[2018-05-09] MEDS: HEPARIN SODIUM - SQ 10,000 UNITS/ML VIAL SQ SCH (23:23)
[2018-05-09] MEDS: PIPERACIL-TAZO 3.375 GM PREMIX 50 ML IV SCH (23:24)
[2018-05-10 00:02] VITALS: BP 129/76; PULSE 76; RESP 18; TEMP 98.6; O2SAT 97
[2018-05-10] MEDS: HYDROCORTISONE 1% CREAM 30 GM TOPICAL SCH ×3 (05:14→20:42)
[2018-05-10] MEDS: PIPERACIL-TAZO 3.375 GM PREMIX 50 ML IV SCH ×3 (05:14→20:11)
[2018-05-10 05:39] LABS: AUTOMATED NEUTROPHIL # 5.1 TH/MM3 (1.8-7.7); BASOPHIL # 0.1 TH/MM3 (0-0.2); BASOPHIL % 1.3 % (0.0-2.0); EOSINOPHIL # 0.8 TH/MM3 (0-0.4); EOSINOPHIL % 8.8 % (0.0-4.0); HEMATOCRIT 39.4 % (39.0-51.0); HEMOGLOBIN 13.2 GM/DL (13.0-17.0); LYMPH % 22.4 % (9.0-44.0); MEAN CELL VOLUME 87.2 FL (80.0-100.0); MEAN CORPUSCULAR HEMOGLOBIN 29.3 PG (27.0-34.0); MEAN CORPUSCULAR HGB CONC 33.6 % (32.0-36.0); MEAN PLATELET VOLUME 7.9 FL (7.0-11.0); MONO % 9.4 % (0.0-8.0); MONOCYTE # 0.8 TH/MM3 (0-0.9); NEUT % 58.1 % (16.0-70.0); PLATELET COUNT 254 TH/MM3 (150-450); RED BLOOD COUNT 4.52 MIL/MM3 (4.50-5.90); RED CELL DISTRIBUTION WIDTH 13.4 % (11.6-17.2); WHITE BLOOD COUNT 8.8 TH/MM3 (4.0-11.0)
[2018-05-10 05:44] LABS: CALCIUM 8.3 MG/DL (8.5-10.1); CREATININE 0.89 MG/DL (0.60-1.30)
[2018-05-10] MEDS: VANCOMYCIN 1,000 MG/NS 250 ML IV SCH ×4 (06:20→20:42)
[2018-05-10 07:38] VITALS: BP 142/92; PULSE 75; RESP 18; TEMP 98.5; O2SAT 99
[2018-05-10] MEDS: INSULIN ASPART SUPPLEMENTAL SCALE SQ SCH ×5 (08:00→21:17)
[2018-05-10] MEDS: SODIUM CHLORIDE 0.9% FLUSH 10 ML FLUSH IV FLUSH SCH ×2 (09:00→20:42)
[2018-05-10] MEDS ORDERED: NALOXONE HCL 0.4 MG/ML AMP IV PUSH PRN (09:30)
[2018-05-10] MEDS ORDERED: ACETAMINOPHEN/HYDROcodone 325 MG/7.5 MG TAB PO PRN (09:30)
[2018-05-10] MEDS: ACETAMINOPHEN/HYDROcodone 325 MG/5 MG TAB PO PRN (09:59)
[2018-05-10] MEDS: HEPARIN SODIUM - SQ 10,000 UNITS/ML VIAL SQ SCH ×2 (09:59→21:16)
[2018-05-10] MEDS: SODIUM CHLOR 0.9% 1000 ML INJ 1,000 ML IV SCH (11:44)
--- NOTE | 2018-05-10 11:51 | HHI.PR ---
Subjective Remarks Patient says he is generally feeling all right. Denies any chest pain or shortness of breath. Denies nausea or vomiting. He reports continued pain left lower extremity. Objective Vital Signs Date Time Temp Pulse Resp B/P (MAP) Pulse Ox O2 Delivery O2 Flow Rate FiO2 05/10/18 07:38 98.5 75 18 142/92 (109) 99 05/10/18 03:09 15 05/10/18 00:02 98.6 76 18 129/76 (93) 97 05/09/18 21:59 98.3 77 17 156/74 (101) 100 05/09/18 21:15 05/09/18 19:19 90 16 122/73 (89) 97 Room Air 05/09/18 17:47 92 17 159/87 (111) 98 Room Air 05/09/18 15:51 99.0 96 17 144/75 (98) 98 I/O 05/09/18 05/09/18 05/09/18 05/10/18 05/10/18 05/10/18 07:00 15:00 23:00 07:00 15:00 23:00 Intake Total 50 ml Balance 50 ml Intake IV Total 50 ml # Voids 1 Result Diagram: 05/10/18 0453 05/10/18 0453 Objective Remarks GENERAL: Patient sitting in bed. Appears comfortable. SKIN: Warm and dry. HEAD: Normocephalic. EYES: No scleral icterus. No injection or drainage. NECK: Supple, trachea midline. No JVD or lymphadenopathy. CARDIOVASCULAR: Regular rate and rhythm without murmurs, gallops, or rubs. RESPIRATORY: Breath sounds equal bilaterally. No accessory muscle use. GASTROINTESTINAL: Abdomen soft, non-tender, nondistended. MUSCULOSKELETAL: No cyanosis. Left lower extremity with 1+ edema, marketed erythema up to mid brizuela. Blisters surrounding foot. BACK: Nontender without obvious deformity. No CVA tenderness. A/P Assessment and Plan // Left lower extremity cellulitis Lower extremity ultrasound negative for DVT Blood cultures pending Vancomycin/Zosyn = No significant improvement. Continue vancomycin, Zosyn. Check sedimentation rate. Check x-ray of left foot. Consult podiatry // Diabetes mellitus Holding home oral anti-hyperglycemics Sliding-scale insulin Monitor blood glucose //Hyperlipidemia/GERD Continue home medications // Eczema Hydrocortisone cream FEN Heart healthy diet Electrolytes: Monitor and replete as needed Discharge Planning Pending improvement. Jerod Levi MD May 10, 2018 11:51
--- NOTE | 2018-05-10 12:33 | RADRPT ---
EXAM DATE: 05/10/2018 12:11 PM EDT AGE/SEX: 67 years / Male INDICATIONS: Pain in left foot. CLINICAL DATA: This is the patient's initial encounter. Patient reports that signs and symptoms have been present for 2 days and indicates a pain score of 10/10. MEDICAL/SURGICAL HISTORY: Diabetes. None. COMPARISON: No prior exams available for comparison. FINDINGS: Bony structures are intact and in normal alignment. Osseous density is normal. Soft tissues are unre markable. No radiopaque foreign bodies seen. CONCLUSION: No acute findings. 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 Electronically signed by: Tae Turpin MD 05/10/2018 12:32 PM EDT
[2018-05-10 14:17] VITALS: BP 125/67; PULSE 69; RESP 18; TEMP 98.6; O2SAT 97
[2018-05-10 16:39] VITALS: BP 130/75; PULSE 65; RESP 18; TEMP 98.7; O2SAT 97
--- NOTE | 2018-05-10 18:12 | MB ---
cc: JoviMiltonmirian DUBOSEM Milton Espana DPM DATE: 05/10/2018 REASON FOR CONSULTATION: Left lower extremity abrasion, cellulitis with blisters of the foot. HISTORY OF PRESENT ILLNESS: This is a 67-year-old male who had significant worsening of redness and pain of his foot and ankle after a superficial scrape took place in which there was redness. He was seen at the [facility], who recommended admission to the hospital. Currently I am seeing the patient bedside. He admits he is having less pain, but it is likely because he is not walking. The patient states he is having a similar type of blistering of his hands. PAST MEDICAL HISTORY: Positive for diabetes type 2, hyperlipidemia, GERD. PAST SURGICAL HISTORY: None listed or reported. OUTPATIENT MEDICATIONS: 1. Simvastatin. 2. Glipizide. 3. Metformin ALLERGIES: NONE LISTED. INPATIENT MEDICATIONS: He is receiving vancomycin and Zosyn. Please see complete med list in chart. PHYSICAL EXAMINATION: VITAL SIGNS: Temperature is 98.7, pulse rate 65, respiratory rate 18, blood pressure is 130/75, satting 97% on room air. GENERAL: Alert and oriented gentleman seen bedside exhibiting nonlabored respirations. His hands appear to have small blisters. The bilateral lower extremities are examined. Right lower extremity is free from any obvious ulceration or issue. Left lower extremity, there is pretibial abrasion uncomplicated. No exposed bone. There is cellulitis, erythema that extends up to the patient's pretibial area and the distal 1/3 of the leg. The calf is nontender, nondistended. The foot is examined. There is noted to be a large clear bullous lesion of the dorsal hallux, the medial and lateral heel and along the plantar skin, mainly of the medial foot. These lesions are slightly tender, but sensation appears to be decreased to light touch and deep pressure. There is a palpable posterior tibialis and a decreased dorsalis pedis. There was edema of the foot all the way up to the ankle. The foot and ankle are warm, but there is no crepitus or instability noted. Bilateral feet appear to have poor hygiene. LABORATORY DATA: White blood cell 8.8, hemoglobin and hematocrit 13 and 39. ESR is 13, platelets 254. Sodium 144, potassium 3.9, chloride 108, CO2 is 28, BUN is 12, creatinine 0.89, random glucose 148. IMAGING STUDIES: Foot x-ray: No obvious mention of bony erosive process, gas within the tissue, foreign body. Read per radiologist appears to show mild osteoarthritis. Lower extremity Doppler negative for DVT. Microbial findings: Negative blood culture. ASSESSMENT AND PLAN: Left lower extremity abrasion, cellulitis with vesiculobullous dermatological disorder, possible vesiculobullous tinea pedis. My recommendation is MRI to rule out any obvious deep infection or Charcot arthropathy, also my recommendation is to treat with oral versus intravenous antifungal with possible steroid, either a tapered Dosepak or intravenous infiltrate. I will discuss this with medicine and prefer they dose it accordingly for this possible severe allergic reaction with an associated fungal infection. I will continue to follow along the patient's progress. I do not think that any surgery would be indicated. An 18-gauge needle was used to treva the blister of the dorsum of the foot and a culture was taken and sent for Gram stain aerobic and fungal culture. The patient will likely need to be certain that the blisters have at least decompressed or resolved before the patient can be discharged home, given that he is a diabetic. ABNER Abbott/ , 05:50 PM , 06:10 PM
[2018-05-10] MEDS ORDERED: GADODIAMIDE PF 287 MG/ML 20 ML VIAL (for RAD MRI) IVCONTRAST ONE (18:50)
--- NOTE | 2018-05-10 19:27 | RADRPT ---
EXAM DATE: 05/10/2018 7:14 PM EDT AGE/SEX: 67 years / Male INDICATIONS: Osteomyelitis. Multiple left foot ulcers. CLINICAL DATA: This is the patient's initial encounter. Patient reports that signs and symptoms have been present for 4 - 6 days and indicates a pain score of 0/10. MEDICAL/SURGICAL HISTORY: Diabetes. . Cyst removal. Tooth extractions. COMPARISON: No prior exams available for comparison. TECHNIQUE: Multiplanar, multisequence MRI examination was performed without contrast and after th e intravenous administration of 18 ml Omniscan (gadodiamide) single exam dose. FINDINGS: Changes of superficial soft tissue edema mainly involving the dorsum of the foot in the ankle region. No evidence of deep soft tissue abscess. No bony signal changes to suggest osteomyelitis. No evidenc e of septic arthritis. CONCLUSION: 1. No evidence of osteomyelitis. Electronically signed by: Jose Luis Payne MD 05/10/2018 7:25 PM EDT
[2018-05-10 20:03] VITALS: BP 154/72; PULSE 80; RESP 16; TEMP 98.4; O2SAT 98
[2018-05-11] MEDS: ACETAMINOPHEN/HYDROcodone 325 MG/5 MG TAB PO PRN ×2 (00:11→17:35)
[2018-05-11] MEDS: PIPERACIL-TAZO 3.375 GM PREMIX 50 ML IV SCH ×4 (00:11→17:35)
[2018-05-11 01:20] VITALS: BP 125/68; PULSE 74; RESP 16; TEMP 98.2; O2SAT 99
[2018-05-11] MEDS ORDERED: PHARMACY ORDERED LAB ONE (05:45)
[2018-05-11] MEDS: HYDROCORTISONE 1% CREAM 30 GM TOPICAL SCH ×3 (05:52→21:59)
[2018-05-11] MEDS: VANCOMYCIN 1,000 MG/NS 250 ML IV SCH ×2 (07:19)
[2018-05-11] MEDS: INSULIN ASPART SUPPLEMENTAL SCALE SQ SCH ×4 (08:00→22:14)
[2018-05-11 09:14] VITALS: BP 140/72; PULSE 68; RESP 14; TEMP 97.2; O2SAT 98
[2018-05-11] MEDS: SODIUM CHLORIDE 0.9% FLUSH 10 ML FLUSH IV FLUSH SCH ×2 (10:14→21:58)
[2018-05-11] MEDS: HEPARIN SODIUM - SQ 10,000 UNITS/ML VIAL SQ SCH ×2 (10:14→21:58)
[2018-05-11] MEDS ORDERED: FLUCONAZOLE 200 MG TAB PO ONE (12:00)
[2018-05-11 12:53] VITALS: BP 126/69; PULSE 73; RESP 16; TEMP 98.1; O2SAT 96
--- NOTE | 2018-05-11 13:14 | PD.ID.CON ---
History of Present Illness Service ID Consult Requested By Dr Levi Reason for Consult R DFI, cellulitis L foot Primary Care Physician [facility] Diagnoses: History of Present Illness 67 yo male withDM and diabetic neuropahty presents with 2 weeksof worsening pain , redness, swellinng of hios L foot that started as blisters on lateral malleleous and over 1 stMT head No abx prior to admission On presentation afebrile, with normal WBC and ESR foot Xray and MRI negative for osteomyelitis Started on ZOsyn, vanco, diflucan Podiatry is following Review of Systems Immunologic/allergic: COMPLAINS OF: Eczema (b/l hands) Except as stated in HPI: all other systems reviewed are Neg Past Family Social History Allergies: Coded Allergies: No Known Allergies (Unverified , 04/03/17) Past Medical History Diabetes mellitus type 2 Hyperlipidemia GERD Past Surgical History None Active Ordered Medications Medications where reviewed in EMR Antibiotics Include: ZOsyn, vanco, diflucan Family History Mother with diabetes mellitus Social History Negative for alcohol, tobacco and illicit drugs Physical Exam Vital Signs Vital Signs Date Time Temp Pulse Resp B/P (MAP) Pulse Ox O2 Delivery O2 Flow Rate FiO2 05/11/18 12:53 98.1 73 16 126/69 (88) 96 05/11/18 09:14 97.2 68 14 140/72 (94) 98 05/11/18 01:20 98.2 74 16 125/68 (87) 99 05/11/18 01:11 15 05/10/18 20:03 98.4 80 16 154/72 (99) 98 05/10/18 16:39 98.7 65 18 130/75 (93) 97 05/10/18 14:17 98.6 69 18 125/67 (86) 97 Physical Exam CONSTITUTIONAL/GENERAL: This is an adequately nourished patient, in no apparent distress. TUBES/LINES/DRAINS: SKIN: No jaundice, Blistering/papular rash on b/l hands NO other skin involved . Skin temperature appropriate. Not diaphoretic. HEAD: Atraumatic. Normocephalic. EYES: Pupils equal and round and reactive. Extraocular motions intact. No scleral icterus. No injection or drainage. Fundi not examined. ENT: Hearing grossly normal. Nose without bleeding or purulent drainage. Throat without visible erythema, exudates, masses, or lesions. edentulous NECK: Trachea midline. Supple, nontender. No palpable thyroid enlargement or nodularity. CARDIOVASCULAR: Regular rate and rhythm without murmurs, gallops, or rubs. No JVD. Peripheral pulses symmetric. RESPIRATORY/CHEST: Symmetric, unlabored respirations. Clear to auscultation. Breath sounds equal bilaterally. No wheezes, rales, or rhonchi. GASTROINTESTINAL: Abdomen soft, non-tender, nondistended. No hepato-splenomegaly , or palpable masses. No guarding. Bowel sounds present. GENITOURINARY: Without palpable bladder distension. MUSCULOSKELETAL: Extremities without clubbing, cyanosis, or edema. B/l LE with loss of skin appendages and chronic changes Feet are warm, well perfused Pulses non palpable R foot with skin integrity Lt foot with erythema, edema tender top palpation and 2 areas of shhallow partial thickness skin loss wound beds are clean minimal serous drainage + cellulitic changes from the foot to mid ankle and half way to the knee no lymphagitis Mildly enlarged L inguinal LN LYMPHATICS: No palpable cervical or supraclavicular adenopathy. NEUROLOGICAL: Awake and alert. Motor and sensory grossly within normal limits. Follows commands. Clear speech Moves all extremities. PSYCHIATRIC: No obvious anxiety/depression. no apparent hallucinations or other psychotic thought process. Laboratory Laboratory Tests Test 05/11/18 06:57 Vancomycin Level Trough 8.5 Date/Time Source Procedure Growth Status 05/09/18 17:50 Blood Peripheral Aerobic Blood Culture - Preliminary NO GROWTH IN 2 DAYS Resulted 05/09/18 17:50 Blood Peripheral Anaerobic Blood Culture - Preliminary NO GROWTH IN 2 DAYS Resulted 05/10/18 17:40 Abscess Foot Fungal Smear Pending Received 05/10/18 17:40 Abscess Foot Fungal Culture Pending Received Result Diagram: 05/10/18 0453 05/10/18 0453 Imaging Last Impressions Foot X-Ray 05/10/18 0000 Signed Impressions: CONCLUSION: No acute findings. 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 Foot MRI 05/10/18 0000 Signed Impressions: CONCLUSION: 1. No evidence of osteomyelitis. Lower Extremity Ultrasound 05/09/18 6728 Signed Impressions: CONCLUSION: Negative for deep venous thrombosis. Bharathi Eng MD FACR Assessment and Plan Assessment and Plan Lt diabetic foot infection cellulitis no osteo - cont zosyn, vanco - monitor closely renal fnx - fu clx - dc fluconazole - arterial studies - anticipate transition to po abx oncel clinically improves Felicia Harmon MD May 11, 2018 13:14
--- NOTE | 2018-05-11 13:44 | HHI.PR ---
Subjective Remarks Patient says he is feeling all right. Denies any chest pain or shortness of breath. Reports pain is under control. Objective Vital Signs Date Time Temp Pulse Resp B/P (MAP) Pulse Ox O2 Delivery O2 Flow Rate FiO2 05/11/18 12:53 98.1 73 16 126/69 (88) 96 05/11/18 09:14 97.2 68 14 140/72 (94) 98 05/11/18 01:20 98.2 74 16 125/68 (87) 99 05/11/18 01:11 15 05/10/18 20:03 98.4 80 16 154/72 (99) 98 05/10/18 16:39 98.7 65 18 130/75 (93) 97 05/10/18 14:17 98.6 69 18 125/67 (86) 97 I/O 05/10/18 05/10/18 05/10/18 05/11/18 05/11/18 05/11/18 07:00 15:00 23:00 07:00 15:00 23:00 Intake Total 250 ml Output Total 2100 ml 750 ml 600 ml Balance -2100 ml -750 ml -350 ml Intake IV Total 250 ml Output Urine Total 2100 ml 750 ml 600 ml Result Diagram: 05/10/18 0453 05/10/18 045 Objective Remarks GENERAL: Patient sitting in bed. Appears comfortable. SKIN: Warm and dry. HEAD: Normocephalic. EYES: No scleral icterus. No injection or drainage. NECK: Supple, trachea midline. No JVD or lymphadenopathy. CARDIOVASCULAR: Regular rate and rhythm without murmurs, gallops, or rubs. RESPIRATORY: Breath sounds equal bilaterally. No accessory muscle use. GASTROINTESTINAL: Abdomen soft, non-tender, nondistended. MUSCULOSKELETAL: No cyanosis. Left lower extremity with 1+ edema, marked erythema up to mid brizuela, appears to be improving slightly. Blisters surrounding foot. BACK: Nontender without obvious deformity. No CVA tenderness. A/P Assessment and Plan // Left lower extremity cellulitis Lower extremity ultrasound negative for DVT Blood cultures pending Vancomycin/Zosyn = No significant improvement. Continue vancomycin, Zosyn. Check sedimentation rate. Check x-ray of left foot. Consult podiatry = Consult infectious disease. Appreciate podiatry assistance. Start on fluconazole. Consult ID. // Diabetes mellitus Holding home oral anti-hyperglycemics Sliding-scale insulin Monitor blood glucose //Hyperlipidemia/GERD Continue home medications // Eczema Hydrocortisone cream FEN Heart healthy diet Electrolytes: Monitor and replete as needed Discharge Planning Pending improvement. Jerod Levi MD May 11, 2018 13:44
[2018-05-11 16:25] VITALS: BP 121/71; PULSE 74; RESP 17; TEMP 97.4; O2SAT 97
--- NOTE | 2018-05-11 16:43 | PD.POD ---
Subjective Podiatric Problems Left lower extremity cellulitis Past Med/Surg/Social History Social History Smoking Status: Former Smoker Objective Vital Signs Vital Signs Date Time Temp Pulse Resp B/P (MAP) Pulse Ox O2 Delivery O2 Flow Rate FiO2 05/11/18 16:25 97.4 74 17 121/71 (88) 97 05/11/18 12:53 98.1 73 16 126/69 (88) 96 05/11/18 09:14 97.2 68 14 140/72 (94) 98 05/11/18 01:20 98.2 74 16 125/68 (87) 99 05/11/18 01:11 15 05/10/18 20:03 98.4 80 16 154/72 (99) 98 Coded Allergies: No Known Allergies (Unverified , 04/03/17) Other Results Microbiology Date/Time Source Procedure Growth Status 05/09/18 17:50 Blood Peripheral Aerobic Blood Culture - Preliminary NO GROWTH IN 2 DAYS Resulted 05/09/18 17:50 Blood Peripheral Anaerobic Blood Culture - Preliminary NO GROWTH IN 2 DAYS Resulted 05/10/18 17:40 Abscess Foot Fungal Smear - Final NO FUNGAL ELEMENTS SEEN. Resulted 05/10/18 17:40 Abscess Foot Fungal Culture Pending Resulted Objective Remarks Last 72 hours Impressions Foot X-Ray 05/10/18 0000 Signed Impressions: CONCLUSION: No acute findings. 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 Foot MRI 05/10/18 0000 Signed Impressions: CONCLUSION: 1. No evidence of osteomyelitis. Lower Extremity Ultrasound 05/09/18 1818 Signed Impressions: CONCLUSION: Negative for deep venous thrombosis. Bharathi Eng MD FACR Physical Exam Remarks Left lateral heel with tense bulla with clear serous drainage present. Deroofed bulla noted to dorsal 1st interspace area. There is erythema extending from foot up to midcalf with edema present. Assessment & Plan A/P Left foot/ankle/leg cellulitis MRI shows no abscess or osteomyelitis Continue IV antibiotics and await final culture/sensitivity from bullous fluid If erythema continues to resolve with IV antibiotics, will recommend compression bandage for edema control Dimitry Means DPM May 11, 2018 16:43
[2018-05-11] MEDS: VANCOMYCIN 1,500 MG/NS 500 ML IV SCH ×2 (18:14)
[2018-05-11 20:18] VITALS: BP 119/71; PULSE 76; RESP 20; TEMP 98.3; O2SAT 96
[2018-05-12] MEDS: PIPERACIL-TAZO 3.375 GM PREMIX 50 ML IV SCH ×4 (00:01→18:06)
[2018-05-12 05:05] VITALS: BP 122/59; PULSE 70; RESP 20; TEMP 98.5; O2SAT 97
[2018-05-12] MEDS: HYDROCORTISONE 1% CREAM 30 GM TOPICAL SCH ×3 (05:39→20:34)
[2018-05-12] MEDS: VANCOMYCIN 1,500 MG/NS 500 ML IV SCH ×4 (06:21→18:39)
[2018-05-12] MEDS: INSULIN ASPART SUPPLEMENTAL SCALE SQ SCH ×4 (08:00→20:34)
[2018-05-12 08:20] VITALS: BP 125/82; PULSE 76; TEMP 97.9; O2SAT 97
[2018-05-12] MEDS: HEPARIN SODIUM - SQ 10,000 UNITS/ML VIAL SQ SCH ×2 (09:58→20:34)
[2018-05-12] MEDS: SODIUM CHLORIDE 0.9% FLUSH 10 ML FLUSH IV FLUSH SCH (09:58)
[2018-05-12] MEDS ORDERED: FLUCONAZOLE 200 MG TAB PO SCH (12:00)
[2018-05-12] MEDS ORDERED: DOCUSATE SODIUM 50 MG/SENNA 8.6 MG TAB PO ONE (12:00)
[2018-05-12] MEDS ORDERED: MAGNESIUM HYDROXIDE SUSP 30 ML CUP PO ONE (12:00)
--- NOTE | 2018-05-12 12:01 | HHI.PR ---
Subjective Remarks Patient says he is feeling all right. Denies any chest pain or shortness of breath. Reports pain is controlled. No bowel movement yet Objective Vital Signs Date Time Temp Pulse Resp B/P (MAP) Pulse Ox O2 Delivery O2 Flow Rate FiO2 05/12/18 08:20 97.9 76 125/82 (96) 97 05/12/18 05:05 98.5 70 20 122/59 (80) 97 05/11/18 20:18 98.3 76 20 119/71 (87) 96 05/11/18 16:25 97.4 74 17 121/71 (88) 97 05/11/18 12:53 98.1 73 16 126/69 (88) 96 I/O 05/11/18 05/11/18 05/11/18 05/12/18 05/12/18 05/12/18 07:00 15:00 23:00 07:00 15:00 23:00 Intake Total 250 ml 50 ml Output Total 750 ml 600 ml 300 ml 500 ml Balance -750 ml -350 ml 50 ml -300 ml -500 ml Intake IV Total 250 ml 50 ml Output Urine Total 750 ml 600 ml 300 ml 500 ml Result Diagram: 05/10/18 0453 05/10/18 0453 Objective Remarks GENERAL: Patient sitting in bed. Appears comfortable. SKIN: Warm and dry. HEAD: Normocephalic. EYES: No scleral icterus. No injection or drainage. NECK: Supple, trachea midline. No JVD or lymphadenopathy. CARDIOVASCULAR: Regular rate and rhythm without murmurs, gallops, or rubs. RESPIRATORY: Breath sounds equal bilaterally. No accessory muscle use. GASTROINTESTINAL: Abdomen soft, non-tender, nondistended. MUSCULOSKELETAL: No cyanosis. Left lower extremity with 1+ edema, marked erythema up to mid brizuela, again, improving slightly. Blisters surrounding foot drying out BACK: Nontender without obvious deformity. No CVA tenderness. A/P Assessment and Plan // Left lower extremity cellulitis Lower extremity ultrasound negative for DVT Blood cultures pending Vancomycin/Zosyn = No significant improvement. Continue vancomycin, Zosyn. Check sedimentation rate. Check x-ray of left foot. Consult podiatry = Consult infectious disease. Appreciate podiatry assistance. Start on fluconazole. Consult ID. = Arterial study pending. Continue antibiotics as per ID and podiatry. Follow- up cultures. // Diabetes mellitus Holding home oral anti-hyperglycemics Sliding-scale insulin Monitor blood glucose //Hyperlipidemia/GERD Continue home medications // Eczema Hydrocortisone cream FEN Heart healthy diet Electrolytes: Monitor and replete as needed Discharge Planning Will need podiatry and infectious disease clearance Jerod Levi MD May 12, 2018 12:01
[2018-05-12 12:20] VITALS: BP 122/68; PULSE 76; RESP 20; TEMP 98.2; O2SAT 96
--- NOTE | 2018-05-12 14:20 | RADRPT ---
EXAM DATE: 05/12/2018 1:22 PM EDT AGE/SEX: 67 years / Male INDICATIONS: Left leg cellulitis with vesicle formation CLINICAL DATA: This is the patient's initial encounter. Patient reports that signs and symptoms have been present for 2 weeks and indicates a pain score of 4/10. MEDICAL/SURGICAL HISTORY: . Diabetic neuropathy, diabetes mellitus, hyperlipidemia, GERD . COMPARISON: No prior exams available for comparison. TECHNIQUE: Five-station segmental examination of the lower extremities was performed. Pulsed-cuff wa veform tracings and pressures were recorded. Ankle-brachial indices and toe-brachial indices were toan culated. PRESSURES (mmHg): Brachial (arm) : RIGHT: 110, LEFT: 109 Lower Thigh : RIGHT: 159, LEFT: 158 Calf : RIGHT: 144, LEFT: 151 Ankle : RIGHT: 151, LEFT: 113 KALEB : RIGHT: 1.37, LEFT: 1.03 Toe : RIGHT: 109, LEFT: 93 TBI : RIGHT: 0.99, LEFT: 0.85 PULSED CUFF WAVEFORMS: Demonstrate normal amplitude bilaterally. CONCLUSION: 1. ABIs and TBI's within the normal range bilaterally. Electronically signed by: Ramon Elaine MD 05/12/2018 2:19 PM EDT
--- NOTE | 2018-05-12 15:22 | HHI.IDPN ---
Subjective Subjective Remarks doing better no fever clx negative arterial studies WNL Antibiotics vanco zosyn Allergies: Coded Allergies: No Known Allergies (Unverified , 04/03/17) Objective . Vital Signs Date Time Temp Pulse Resp B/P (MAP) Pulse Ox O2 Delivery O2 Flow Rate FiO2 05/12/18 12:20 98.2 76 20 122/68 (86) 96 05/12/18 08:20 97.9 76 125/82 (96) 97 05/12/18 05:05 98.5 70 20 122/59 (80) 97 05/11/18 20:18 98.3 76 20 119/71 (87) 96 05/11/18 16:25 97.4 74 17 121/71 (88) 97 05/12/18 05/12/18 05/13/18 15:00 23:00 07:00 Output Total 500 ml Balance -500 ml Output Urine Total 500 ml . Microbiology Date/Time Source Procedure Growth Status 05/09/18 17:50 Blood Peripheral Aerobic Blood Culture - Preliminary NO GROWTH IN 3 DAYS Resulted 05/09/18 17:50 Blood Peripheral Anaerobic Blood Culture - Preliminary NO GROWTH IN 3 DAYS Resulted 05/09/18 17:45 Blood Peripheral Aerobic Blood Culture - Preliminary NO GROWTH IN 3 DAYS Resulted 05/09/18 17:45 Blood Peripheral Anaerobic Blood Culture - Preliminary NO GROWTH IN 3 DAYS Resulted 05/10/18 17:40 Abscess Foot Fungal Smear - Final NO FUNGAL ELEMENTS SEEN. Resulted 05/10/18 17:40 Abscess Foot Fungal Culture Pending Resulted 05/10/18 17:40 Abscess Foot Gram Stain - Final Resulted 05/10/18 17:40 Abscess Foot Wound Culture - Preliminary NO GROWTH IN 48 HOURS. Resulted Imaging Last Impressions Extremity Arterial Study 05/11/18 0000 Signed Impressions: CONCLUSION: 1. ABIs and TBI's within the normal range bilaterally. Foot X-Ray 05/10/18 0000 Signed Impressions: CONCLUSION: No acute findings. 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 Foot MRI 05/10/18 0000 Signed Impressions: CONCLUSION: 1. No evidence of osteomyelitis. Lower Extremity Ultrasound 05/09/181817 Signed Impressions: CONCLUSION: Negative for deep venous thrombosis. Bharathi Eng MD FACR Physical Exam CONSTITUTIONAL/GENERAL: This is an adequately nourished patient, in no apparent distress. TUBES/LINES/DRAINS: SKIN: No jaundice, Blistering/papular rash on b/l hands NO other skin involved . Skin temperature appropriate. Not diaphoretic. RESPIRATORY/CHEST: Symmetric, unlabored respirations. GASTROINTESTINAL: Abdomen soft, non-tender, nondistended. MUSCULOSKELETAL: Extremities without clubbing, cyanosis, or edema. B/l LE with loss of skin appendages and chronic changes R foot with skin integrity Lt foot with improved erythema, edema + cellulitic changes from the foot to mid ankle and half way to the knee no lymphagitis LYMPHATICS: No palpable cervical or supraclavicular adenopathy. NEUROLOGICAL: Awake and alert. Motor and sensory grossly within normal limits. Follows commands. Clear speech Moves all extremities. PSYCHIATRIC: No obvious anxiety/depression. no apparent hallucinations or other psychotic thought process. Assessment & Plan Remarks Lt diabetic foot infection - improving cellulitis no osteo no e/o PVD on arterial s studies - change zosyn, vanco to Keflex 500 qid + Doxycyline 100 bid x 10 days - OK to dc Felicia Harmon MD May 12, 2018 15:22
[2018-05-12] MEDS ORDERED: WALKER WHEELS/F1 MIS (15:37)
--- NOTE | 2018-05-12 15:39 | HHI.FF ---
Face to Face Verification Diagnosis: (1) Cellulitis of left leg Physical Therapy Order: Evaluate and Treat Home Health Nursing Order: Wound care and dressing changes Instructions: Left foot we will need to be dressed with nonstick pads, gauze daily I have seen patient Uri Zazueta on 05/12/18. My clinical findings support the need for the requested home health care services because: Limited ability to care for self I certify that my clinical findings support that this patient is homebound because: Unsafe to leave home unassisted Jerod Levi MD May 12, 2018 15:38
[2018-05-12] MEDS ORDERED: DOXY100C PO (15:41)
[2018-05-12] MEDS ORDERED: CEPH-460 PO (15:41)
--- NOTE | 2018-05-12 15:44 | HHI.DS ---
Discharge Summary Admission Date May 09, 2018 at 20:58 Discharge Date: May 12, 2018 Admitting Diagnosis Left leg Cellulitis with vesicle formation (1) Cellulitis of left leg ICD Code: L03.116 - Cellulitis of left lower limb Status: Acute Procedures Drainage of foot blisters by podiatry. Please see documentation. Brief History - From Admission 67-year-old male with a past medical history significant for type 2 diabetes mellitus, hyperlipidemia and GERD presents to the emergency department for the evaluation of left lower extremity redness/swelling. The patient reports that for the past 2 weeks his left lower extremity has become increasingly erythematous and swollen. He reports that on 03/28 he fell and scraped his brizuela. He states he kept the area clean with soap and water and Band-Aids and felt that it was healing appropriately until 2 weeks ago. He denies any fever/ chills. States he does have ankle pain with ambulation. He began to notice blistering on the top of his foot and his lower brizuela approximately 2-3 days ago. No chest pain or shortness of breath. No abdominal pain. No nausea/ vomiting/diarrhea. No lateralizing signs/symptoms. CBC/BMP: 05/10/18 0453 05/10/18 0453 Significant Findings Laboratory Tests Test 05/09/18 16:36 05/10/18 04:53 05/11/18 06:57 Eosinophils (%) (Auto) 8.6 % (0.0-4.0) 8.8 % (0.0-4.0) Eosinophils # (Auto) 0.7 TH/MM3 (0-0.4) 0.8 TH/MM3 (0-0.4) Random Glucose 261 MG/DL (74-106) 148 MG/DL (74-106) Estimat Glomerular Filtration Rate 74 ML/MIN (>89) 86 ML/MIN (>89) Monocytes (%) (Auto) 9.4 % (0.0-8.0) Calcium Level 8.3 MG/DL (8.5-10.1) Chloride Level 108 MEQ/L (98-107) Imaging Last Impressions Extremity Arterial Study 05/11/18 Signed Impressions: CONCLUSION: 1. ABIs and TBI's within the normal range bilaterally. Foot X-Ray 05/10/18 Signed Impressions: CONCLUSION: No acute findings. 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 Foot MRI 05/10/18 Signed Impressions: CONCLUSION: 1. No evidence of osteomyelitis. Lower Extremity Ultrasound 05/09/181817 Signed Impressions: CONCLUSION: Negative for deep venous thrombosis. Bharathi Eng MD FACR PE at Discharge Last 72 hours Impressions Foot X-Ray 05/10/18 Signed Impressions: CONCLUSION: No acute findings. 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 Foot MRI 05/10/18 Signed Impressions: CONCLUSION: 1. No evidence of osteomyelitis. Lower Extremity Ultrasound 05/09/181817 Signed Impressions: CONCLUSION: Negative for deep venous thrombosis. Bharathi Eng MD FACR Hospital Course Patient was treated for left lower extremity cellulitis with slow improvement. Podiatry was consulted. Cultures were performed and negative. Imaging negative for osteomyelitis as above. Doppler arteries negative for arterial disease as above. Infectious disease was consulted, recommends discharge home on by mouth antibiotics to complete treatment course. Patient was seen by physical therapy who recommends wheeled walker. Follow-up with primary care and podiatry as outpatient For problem based summary from most recent progress note, please see below. // Left lower extremity cellulitis Lower extremity ultrasound negative for DVT Blood cultures pending Vancomycin/Zosyn = No significant improvement. Continue vancomycin, Zosyn. Check sedimentation rate. Check x-ray of left foot. Consult podiatry = Consult infectious disease. Appreciate podiatry assistance. Start on fluconazole. Consult ID. = Arterial study pending. Continue antibiotics as per ID and podiatry. Follow- up cultures. // Diabetes mellitus Holding home oral anti-hyperglycemics Sliding-scale insulin Monitor blood glucose //Hyperlipidemia/GERD Continue home medications // Eczema Hydrocortisone cream FEN Heart healthy diet Electrolytes: Monitor and replete as needed Discharge Planning Will need podiatry and infectious disease clearance Pt Condition on Discharge: Good Discharge Disposition: Disch w/ Home Health Serv Discharge Time: > 30 minutes Discharge Instructions DIET: Follow Instructions for: Diabetic Diet Activities you can perform: Weight Bearing as Mikayla Follow up Referrals: PCP Follow-up - 3-5 Days [facility] - 1 Week New Medications: Cephalexin (Keflex) 500 Mg Capsule 500 MG PO QID for Infection for 10 Days, CAP 0 Refills Doxycycline Hyclate (Doxycycline Hyclate) 100 Mg Cap 100 MG PO BID for Infection for 10 Days, #20 CAP 0 Refills Walker with Front Wheels (Walker with Front Wheels) 1 Mis Mis EA .XX DIRECTED, #1 0 Refills Continued Medications: Glipizide (Glipizide) 5 Mg Tab 5 MG PO BIDAC for Blood Sugar Management, #60 TAB 0 Refills Take 30 minutes before a meal Metformin (Metformin) 1,000 Mg Tab 1000 MG PO BIDPC for Blood Sugar Management, #60 TAB 0 Refills With meals Pantoprazole (Pantoprazole) 40 Mg Tab 40 MG PO DAILY for Reflux, #30 TAB-CAP 0 Refills NS Simvastatin (Simvastatin) 20 Mg Tab 20 MG PO DAILY for Cholesterol Management, #30 TAB 0 Refills Jerod Levi MD May 12, 2018 15:44
[2018-05-12 17:01] VITALS: BP 120/62; PULSE 70; RESP 20; TEMP 98.2; O2SAT 98
[2018-05-12 19:27] VITALS: BP 127/81; PULSE 92; RESP 17; TEMP 98.8; O2SAT 96
[2018-05-12 22:47] VITALS: BP 120/71; PULSE 75; RESP 16; TEMP 98.2; O2SAT 97
[2018-05-13] MEDS: PIPERACIL-TAZO 3.375 GM PREMIX 50 ML IV SCH ×4 (00:34→17:14)
[2018-05-13] MEDS: SODIUM CHLORIDE 0.9% FLUSH 10 ML FLUSH IV FLUSH SCH ×2 (00:34→09:00)
[2018-05-13 03:10] VITALS: BP 127/72; PULSE 69; RESP 17; TEMP 97.9; O2SAT 96
[2018-05-13] MEDS ORDERED: PHARMACY ORDERED LAB ONE ×2 (05:45→17:45)
[2018-05-13] MEDS: HYDROCORTISONE 1% CREAM 30 GM TOPICAL SCH ×2 (06:33→12:42)
[2018-05-13] MEDS: VANCOMYCIN 1,500 MG/NS 500 ML IV SCH ×2 (07:23)
[2018-05-13] MEDS: INSULIN ASPART SUPPLEMENTAL SCALE SQ SCH ×3 (08:00→17:00)
[2018-05-13 08:39] VITALS: BP 132/60; PULSE 70; RESP 20; TEMP 98.2; O2SAT 96
[2018-05-13] MEDS: HEPARIN SODIUM - SQ 10,000 UNITS/ML VIAL SQ SCH (09:00)
--- NOTE | 2018-05-13 09:25 | HHI.PR ---
Subjective Remarks Follow up for LLE cellulitis. Discharge held yesterday due to unable to set up [facility] until Tuesday. However after thorough discussion with case management, RN, PT , and the patient; will plan for the patient to receive instructions on performing his own dressing changes until [facility] can visit him on Tuesday. Patient verbalizes understanding. He denies any fevers/chills. He believes the LLE erythema/edema is improving, still has few small blisters that are intact. He has no other medical complaints at this time. Objective Vitals Vital Signs Date Time Temp Pulse Resp B/P (MAP) Pulse Ox O2 Delivery O2 Flow Rate FiO2 05/13/18 08:39 98.2 70 20 132/60 (84) 96 05/13/18 03:10 97.9 69 17 127/72 (90) 96 05/12/18 22:47 98.2 75 16 120/71 (87) 97 05/12/18 19:27 98.8 92 17 127/81 (96) 96 05/12/18 17:01 98.2 70 20 120/62 (81) 98 05/12/18 12:20 98.2 76 20 122/68 (86) 96 I/O 05/12/18 05/12/18 05/12/18 05/13/18 05/13/18 05/13/18 07:00 15:00 23:00 07:00 15:00 23:00 Output Total 300 ml 500 ml Balance -300 ml -500 ml Output Urine Total 300 ml 500 ml Result Diagram: 05/10/18 0453 05/10/18 0453 Imaging Last Impressions Extremity Arterial Study 05/11/18 0000 Signed Impressions: CONCLUSION: 1. ABIs and TBI's within the normal range bilaterally. Foot X-Ray 05/10/18 0000 Signed Impressions: CONCLUSION: No acute findings. 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 Foot MRI 05/10/18 0000 Signed Impressions: CONCLUSION: 1. No evidence of osteomyelitis. Lower Extremity Ultrasound 05/09/18 096 Signed Impressions: CONCLUSION: Negative for deep venous thrombosis. Bharathi Eng MD FACR Objective Remarks GENERAL: Well-nourished, well-developed male patient in [facility]. SKIN: Warm and dry. No rash. HEENT: Normocephalic. Atraumatic. Pupils equal and round. Mucous membranes pink and moist. CARDIOVASCULAR: Regular rate and rhythm. No murmur appreciated. RESPIRATORY: No accessory muscle use. Clear to auscultation. Breath sounds equal bilaterally. GASTROINTESTINAL: Abdomen soft, non-tender, nondistended. Normoactive bowel sounds x4. MUSCULOSKELETAL: No obvious deformities. LLE with mild erythema from ankle to mid brizuela, 1+ edema, blisters throughout left foot, 2 intact, other blisters debrided and dry without drainage. NEUROLOGICAL: Awake and alert. No obvious cranial nerve deficits. Motor grossly within normal limits. Moving all extremities spontaneously. Normal speech. PSYCHIATRIC: Appropriate mood and affect; insight and judgment normal. Procedures 05/10 - Bedside Drainage of foot blisters by podiatry Medications and IVs Current Medications Medications (Trade) Dose Ordered Sig/Geraldo Route Start Time Stop Time Status Last Admin (D50w (Vial) Inj) 50 ml UNSCH PRN IV PUSH 05/09/18 21:00 (Glucagon Inj) 1 mg UNSCH PRN OTHER 05/09/18 21:00 (NovoLOG SUPPLEMENTAL SCALE) 1 ACHS SLIDING SCALE SQ 05/09/18 21:00 05/12/18 20:34 (Hydrocortisone 1% Cream) 1 applic Q8H TOPICAL 05/09/18 21:00 05/16/18 20:59 05/13/18 12:42 Pharmacy Profile Note 0 ml @ 0 mls/hr UNSCH OTHER 05/09/18 21:00 Piperacillin Sod/ Tazobactam Sod 50 ml @ 100 mls/hr Q6H IV 05/10/18 00:00 05/13/18 12:42 (NS Flush) 2 ml UNSCH PRN IV FLUSH 05/09/18 21:00 (NS Flush) 2 ml BID IV FLUSH 05/09/18 21:00 05/13/18 00:34 (Tylenol) 650 mg Q4H PRN PO 05/09/18 21:00 05/10/18 02:09 (Heparin Inj) 5,000 units Q12H SQ 05/09/18 21:00 05/12/18 20:34 (Narcan Inj) 0.4 mg UNSCH PRN IV PUSH 05/09/18 21:00 (Milk Of Magnesia Liq) 30 ml Q12H PRN PO 05/09/18 21:00 (Senokot) 17.2 mg Q12H PRN PO 05/09/18 21:00 (Dulcolax Supp) 10 mg DAILY PRN RECTAL 05/09/18 21:00 (Shipman 5-325 Mg) 1 tab Q4H PRN PO 05/10/18 09:30 05/11/18 17:35 (Shipman 7.5-325 Mg) 1 tab Q4H PRN PO 05/10/18 09:30 05/11/18 10:14 (Narcan Inj) 0.4 mg UNSCH PRN IV PUSH 05/10/18 09:30 Vancomycin HCl 1500 mg/Sodium Chloride 515 ml @ 257.5 mls/ hr Q12H IV 05/11/18 18:00 05/13/18 07:23 ([facility] [place] [place] [facility] Ordered Lab Info) SPECIFIC LAB TO BE ... ONCE ONCE .XX 05/13/18 17:45 05/13/18 17:46 A/P Problem List: (1) Cellulitis of left leg ICD Code: L03.116 - Cellulitis of left lower limb Status: Acute Assessment and Plan 67-year-old male with history of DM, HLD, GERD, presents with LLE erythema/ edema x2 weeks. Left lower extremity cellulitis: acute -LLE Doppler U/S negative for DVT -Left Foot Xray with no acute findings; mild osteoarthritis -Left Foot MRI shows no evidence of osteomyelitis -ABIs within normal range bilaterally -Podiatry consulted, performed bedside lancing of blisters, appreciate recommendations -Wound culture with no growth x72 hours -Blood cultures with NGTD -Consulted ID, appreciate assistance -S/p treatment with IVF Vanco/Zosyn, now transitioned to Keflex and Doxy [id number] per infectious disease -Case management to arrange [facility] for dressing changes Diabetes mellitus: chronic -Holding home oral anti-hyperglycemics -Sliding-scale insulin -Monitor blood glucose Hyperlipidemia/GERD: chronic, stable -Continue home medications Eczema: chronic -continue Hydrocortisone cream Discharge Planning The patient is being discharged home with HHC. [facility], therefore patient will be instructed on performing his own dressing changes and given enough supplies until [facility] can visit. Discussed with PT, the patient was able to ambulate 100' with stand by assist, and therefore believes the patient is safe to return home with plans for C PT in a few days. See Dr. Levi's discharge summary from yesterday 05/12. Destinee Myles PA-C May 13, 2018 9:25 am
[2018-05-13 12:49] VITALS: BP 140/60; PULSE 68; RESP 20; TEMP 97.9; O2SAT 98
[2018-05-13 12:50] LABS: CREATININE 0.9 MG/DL (0.60-1.30)
[2018-05-13 16:55] VITALS: BP 128/68; PULSE 68; RESP 20; TEMP 98.2; O2SAT 96
[2018-05-13] MEDS ORDERED: CEPHALEXIN MONOHYDRATE 500 MG CAP PO SCH (18:00)
[2018-05-13] MEDS ORDERED: DOXYCYCLINE HYCLATE 100 MG CAP PO SCH (21:00)
== END 2018-05-13 20:03 | disposition home or self-care (01) ==
LOC: NEPE 15:29 → NEDA 20:58 → NEPHCDU 21:36
PROVIDERS: ADMIT Hospitalist; ATTEND Hospitalist
DX: L03.116 Cellulitis of left lower limb (principal); L30.9 Dermatitis, unspecified; E78.5 Hyperlipidemia, unspecified; E11.628 Type 2 diabetes mellitus with other skin complications; K21.9 Gastro-esophageal reflux disease without esophagitis; F17.200 Nicotine dependence, unspecified, uncomplicated; M19.072 Primary osteoarthritis, left ankle and foot; Z79.84 Long term (current) use of oral hypoglycemic drugs; Z83.3 Family history of diabetes mellitus
CPT/HCPCS: 73630; 73720; 80048; 80053; 80202; 82565; 82948; 85025; 85652; 87040; 87070; 87102; 87205; 87206; 93923; 93971; 96365; 96366; 96372; 97110; 97162; 99285; A9579; G0378; G8987; G8988; J1644; J1815; J2543; J3370; J7030; J7040; J7050; 80076